=== PATIENT | female | born 1960 | race Caucasian/White ===

== ENCOUNTER → 2017-03-07 | Outpatient (CLI) | payer OTHER ==
--- NOTE | 2017-03-07 15:34 | RAD ---
DATE: 03/07/2017 EXAM: DIGITAL DIAGNOSTIC BILATERAL HISTORY: Palpable lump in the right breast. COMPARISON: None available. This study was interpreted with the benefit of Computerized Aided Detection (CAD ). FINDINGS: Bilateral CC and MLO views were obtained. There is a slightly lobulated mass in the lower slightly inner aspect of the right breast at posterior depth. There is a second smaller nodular density slightly lateral to the dominant mass and minimally posterior to the dominant mass. No malignant microcalcifications are seen. The left breast is unremarkable. The axillae are unremarkable. Impression: Dominant mass in the lower slightly inner aspect of the right breast at posterior depth with smaller adjacent nodular density. Findings are concerning for neoplasm with a satellite lesion. Further evaluation with ultrasound is recommended. Right breast ultrasound: Sonographic interrogation of the lower inner right breast was performed. There is a hypoechoic mass at the 5:00 location of the right breast, 7 cm from the nipple. This measures 1.2 x 1.1 x 0.8 cm. This does show internal vascularity and has slightly irregular margins. There is a second solid appearing hypoechoic nodule adjacent to this at the 6:00 location 7 cm from the nipple. This measures 5 mm x 5 mm x 4 mm and also shows internal vascularity. Breast Density: HETERO The breast parenchyma is heterogeneously dense, which could reduce sensitivity of mammography. Breast parenchyma level C. IMPRESSION: Dominant, solid mass at the 5:00 location of the right breast, 7 cm from the nipple with smaller 5 mm adjacent nodule at the 6:00 location of the right breast. Features are concerning for neoplasm with adjacent satellite nodule. Tissue sampling is recommended. The dominant lesion would be amenable to ultrasound-guided core biopsy. BI-RADS CATEGORY: 4 SUSPICIOUS ABNORMALITY- BIOPSY SHOULD BE CONSIDERED RECOMMENDED FOLLOW-UP: BIO BIOPSY RECOMMENDED PQRS compliance statement: Patient information was entered into a reminder system with a target due date for the next mammogram. Mammography is a sensitive method for finding small breast cancers, but it does not detect them all and is not a substitute for careful clinical examination. A negative mammogram does not negate a clinically suspicious finding and should not result in delay in biopsying a clinically suspicious abnormality. "Our facility is accredited by the [employer] Mammography Program." [facility]
== END | disposition home or self-care (01) ==
LOC: PMG 11:37
PROVIDERS: ATTEND Physician Assistant Medical
DX: N63.10 Unspecified lump in the right breast, unspecified quadrant (principal)
CPT/HCPCS: 76641; G0204; 77066